=== PATIENT | female | born 1985 | race Two or more races ===

== ENCOUNTER 2017-02-08 02:48 | Emergency (ER) | payer SELFPAY ==
[2017-02-08] MEDS ORDERED: DIPH,PERTUSS(ACELL),TET VAC/PF 0.5 ML IM-VACC ONE ×2 (03:00→04:17)
[2017-02-08] MEDS ORDERED: LIDOCAINE 1%, 20ML INFIL ONE (03:00)
[2017-02-08] MEDS ORDERED: LIDOCAINE 1%, 20ML ONE (03:34)
[2017-02-08 03:48] VITALS: BP 106/62
[2017-02-08] MEDS ORDERED: BACITRACIN ZINC OINT 500U/GM, 0.9 GM ONE (03:51)
[2017-02-08] MEDS ORDERED: L.E.T SOLUTION TP ONE (04:00)
== END 2017-02-08 04:30 | disposition home or self-care (01) ==
LOC: ED 04:09
DX: S01.01XA Laceration without foreign body of scalp, initial encounter (principal); S01.21XA Laceration without foreign body of nose, initial encounter; S01.411A Laceration without foreign body of right cheek and temporomandibular area, initial encounter; F10.120 Alcohol abuse with intoxication, uncomplicated; Z23 Encounter for immunization; W19.XXXA Unspecified fall, initial encounter; Y93.89 Activity, other specified; Y99.8 Other external cause status; Y92.59 Other trade areas as the place of occurrence of the external cause
CPT/HCPCS: 12001; 12013; 70450; 70486; 72125; 90471; 90715; 99284; J3490